=== PATIENT | male | born 1960 | race Hispanic/Latino ===

== ENCOUNTER 2020-11-14 08:12 | Day surgery (SDC) | payer OTHER ==
[2020-11-13 11:20] VITALS: BMI 38.0
[2020-11-14] MEDS ORDERED: Levofloxacin 500 mg/D5W 100 ml Premix Bag ONE (09:58)
[2020-11-14] MEDS ORDERED: Ondansetron PF 4 MG/2 ML Vial ONE ×2 (09:58→10:22)
[2020-11-14] MEDS ORDERED: Scopolamine 1.5 mg/72 hour Patch ONE (09:58)
[2020-11-14] MEDS ORDERED: Iothalamate Meglumine 60% 30 ML VIAL FS ONE (10:01)
[2020-11-14] MEDS ORDERED: Fentanyl 100 MCG/2 ML VIAL ONE (10:07)
[2020-11-14] MEDS ORDERED: PHENYLEPHRINE-NS 100 MCG/ML 10 ML SYRINGE ONE (10:22)
[2020-11-14] MEDS ORDERED: Lidocaine 1% PF 5 ML VIAL ONE (10:22)
[2020-11-14] MEDS ORDERED: PROPOFOL 200 MG/20 ML VIAL ONE (10:22)
[2020-11-14] MEDS ORDERED: Dexamethasone 20 MG/5 ML VIAL ONE (10:22)
[2020-11-14] MEDS ORDERED: ePHEDrine 50 MG/ML VIAL ONE (10:22)
[2020-11-14] MEDS ORDERED: Ketorolac Tromethamine 30 MG/ML VIAL ONE (11:36)
[2020-11-14] MEDS ORDERED: Oxybutynin 5 MG TAB ONE (11:36)
[2020-11-14] MEDS ORDERED: Phenazopyridine HCl 100 MG TAB ONE (11:36)
== END 2020-11-14 12:50 | disposition home or self-care (01) ==
LOC: SDC 08:12
PROVIDERS: ATTEND Urology
PROC: 0TC48ZZ Extirpation of Matter from Left Kidney Pelvis, Via Natural or Artificial Opening Endoscopic (ICD-10-PCS; principal; 2020-11-14)
PROC: 0T778DZ Dilation of Left Ureter with Intraluminal Device, Via Natural or Artificial Opening Endoscopic (ICD-10-PCS; principal; 2020-11-14)
DX: N20.0 Calculus of kidney (principal); N40.1 Benign prostatic hyperplasia with lower urinary tract symptoms; I10 Essential (primary) hypertension; E11.9 Type 2 diabetes mellitus without complications; Z79.84 Long term (current) use of oral hypoglycemic drugs; Z79.899 Other long term (current) drug therapy
CPT/HCPCS: 74420; 82365; 88300; C2617; J1100; J1885; J1956; J2405; J2704; J3010; J3490

== ENCOUNTER 2021-01-15 16:11 | Outpatient (CLI) | payer OTHER | END 2021-01-15 16:12 | disposition home or self-care (01) | LOC: BICULT 16:11 | PROVIDERS: ATTEND Urology | DX: N20.1 Calculus of ureter (principal) | CPT/HCPCS: 76770 ==

== ENCOUNTER 2021-03-26 13:15 | Inpatient (IN) | payer OTHER ==
[2021-03-30 10:12] VITALS: BMI 36.0
[2021-03-31] MEDS ORDERED: HYDROmorphone 2 MG/ML VIAL ONE (06:00)
[2021-03-31] MEDS ORDERED: Fentanyl 100 MCG/2 ML VIAL ONE ×2 (06:00→06:41)
[2021-03-31] MEDS ORDERED: Sodium Chloride 0.9% 10 ML ONE (06:01)
[2021-03-31] MEDS ORDERED: Sodium Chloride 0.9% 100 ML ONE (06:06)
[2021-03-31] MEDS ORDERED: ceFAZolin 2 GM/DEX 5% 100 ML BAG ONE (06:06)
[2021-03-31] MEDS ORDERED: Tranexamic Acid 1,000 MG/10 ML VIAL ONE (06:06)
[2021-03-31] MEDS ORDERED: Midazolam HCl 2 mg/2 ml Vial ONE (06:41)
[2021-03-31] MEDS ORDERED: Scopolamine 1.5 mg/72 hour Patch ONE (06:44)
[2021-03-31] MEDS ORDERED: Ondansetron PF 4 MG/2 ML Vial IVP PRN ×2 (06:53→07:15)
[2021-03-31] MEDS ORDERED: diphenhydrAMINE 25 MG CAP PO PRN (06:53)
[2021-03-31] MEDS ORDERED: Zolpidem Tartrate 5 MG TAB PO PRN ×2 (06:53→07:15)
[2021-03-31] MEDS ORDERED: Fentanyl 100 MCG/2 ML VIAL SLOW IVP PRN ×2 (06:53)
[2021-03-31] MEDS ORDERED: Acetaminophen 325 MG TAB PO PRN (06:53)
[2021-03-31] MEDS ORDERED: HYDROcodone/Acetaminophen 10/325 mg Tablet PO PRN ×4 (06:53→07:15)
[2021-03-31] MEDS ORDERED: Promethazine HCl 25 MG/ML VIAL IM PRN ×3 (06:53→08:52)
[2021-03-31] MEDS ORDERED: Vancomycin HCl 1.5 GM in Sodium Chloride 0.9% 250 ML 300 ML IVPB SCH (07:00)
[2021-03-31] MEDS ORDERED: Vancomycin 1.5 GRAM/300 ML BAG 1.5 GM in Premix Bag 1 BAG IVPB SCH (07:00)
[2021-03-31] MEDS ORDERED: Non-Formulary Item 1 EACH (Cholecalciferol (Vitamin D3) [Vitamin D3] 50,000 UNIT Capsule) PO SCH (07:00)
[2021-03-31] MEDS ORDERED: Fentanyl 100 MCG/2 ML VIAL IV PRN (07:06)
[2021-03-31] MEDS ORDERED: traMADol HCl 50 MG TAB PO PRN ×2 (07:15)
[2021-03-31] MEDS ORDERED: Ropivacaine 0.2% 550 ML 550 ML NERVE BLCK SCH (07:15)
[2021-03-31] MEDS ORDERED: Lidocaine 1% PF 5 ML VIAL ONE (07:18)
[2021-03-31] MEDS ORDERED: Ondansetron PF 4 MG/2 ML Vial ONE (07:18)
[2021-03-31] MEDS ORDERED: Dexamethasone 20 MG/5 ML VIAL ONE (07:18)
[2021-03-31] MEDS ORDERED: Phenylephrine 10 MG/ML VIAL ONE (07:18)
[2021-03-31] MEDS ORDERED: Bupivacaine HCl 0.5%/Epinephrine 1:200,000/PF 30 ml Vial ONE (07:18)
[2021-03-31] MEDS ORDERED: PROPOFOL 200 MG/20 ML VIAL ONE (07:18)
[2021-03-31] MEDS ORDERED: Bupivacaine PF 0.5% 30 ML VIAL ONE (08:09)
[2021-03-31] MEDS ORDERED: HYDROmorphone 2 MG/ML VIAL SLOW IVP PRN (08:52)
[2021-03-31] MEDS ORDERED: Promethazine HCl 25 MG/ML VIAL IVPB PRN (08:52)
[2021-03-31] MEDS ORDERED: Meperidine HCl/PF 25 MG/ML VIAL SLOW IVP PRN (08:52)
[2021-03-31] MEDS ORDERED: Ondansetron HCl/PF 4 MG/2 ML Vial IVP PRN (08:52)
[2021-03-31] MEDS ORDERED: Ergocalciferol 1.25 MG(50,000 UNITS) CAP PO SCH (09:00)
[2021-03-31] MEDS ORDERED: Non-Formulary Item 1 EACH (Pitavastatin Calcium 2 MG Tab) PO SCH (09:00)
[2021-03-31] MEDS ORDERED: Meperidine HCl/PF 25 MG/ML VIAL ONE (10:03)
[2021-03-31] MEDS ORDERED: hydrALAZINE 20 MG/ML VIAL ONE (10:49)
[2021-03-31] MEDS ORDERED: HumaLOG 300 UNITS/3 ML VIAL SC PRN ×2 (12:19)
[2021-03-31] MEDS ORDERED: Dextrose 5% in Water 1,000 ML IV PRN (12:19)
[2021-03-31] MEDS ORDERED: Dextrose 50% Abboject 50 ML SYRINGE SLOW IVP PRN (12:19)
[2021-03-31] MEDS: Sodium Chloride 0.9% 1,000 ML IV SCH ×2 (12:33→17:49)
[2021-03-31] MEDS: Aspirin 81 mg Enteric Coated Tablet PO SCH ×2 (12:33→21:17)
[2021-03-31] MEDS: metFORMIN 500 MG TAB PO SCH ×2 (12:33→13:17)
[2021-03-31] MEDS: Empagliflozin 10 MG TAB PO SCH (12:34)
[2021-03-31] MEDS: Losartan 25 MG TAB PO SCH (12:34)
[2021-03-31] MEDS: Multivitamin W/ Minerals 1 TAB PO SCH (12:34)
[2021-03-31] MEDS: Ferrous Gluconate 324 MG TAB PO SCH ×2 (12:34→21:17)
[2021-03-31] MEDS: Senokot S 8.6-50 MG TAB PO SCH ×2 (12:34→21:18)
[2021-03-31] MEDS: Ketorolac Tromethamine 30 MG/ML VIAL IVP SCH ×2 (13:17→17:41)
[2021-03-31] MEDS ORDERED: CEFAZOLIN 2 GM in Premix Bag 1 BAG IVPB SCH (14:00)
[2021-03-31] MEDS ORDERED: Ketorolac Tromethamine 30 MG/ML VIAL IM SCH (14:00)
[2021-03-31] MEDS: CEFAZOLIN 2 GM in Premix Bag 1 BAG IVPB SCH (17:37)
[2021-03-31] MEDS ORDERED: hydrALAZINE 20 MG/ML VIAL SLOW IVP PRN (19:01)
[2021-03-31] MEDS ORDERED: Polyethylene Glycol 3350 17 GM Packet PO PRN (19:01)
[2021-03-31] MEDS: Atorvastatin Calcium 10 MG TAB PO SCH (21:17)
[2021-03-31] MEDS: Tamsulosin HCl 0.4 MG CAP PO SCH (21:18)
[2021-04-01] MEDS: Ketorolac Tromethamine 30 MG/ML VIAL IVP SCH ×5 (00:59→22:47)
[2021-04-01] MEDS: CEFAZOLIN 2 GM in Premix Bag 1 BAG IVPB SCH (01:00)
[2021-04-01] MEDS: Sodium Chloride 0.9% 1,000 ML IV SCH ×3 (01:29→22:47)
[2021-04-01 05:33] LABS: Hemoglobin 12.6 g/dL (14.0-18.0); Mean Corpuscular HGB CONC 32.8 g/dL (32.0-36.0); Mean Corpuscular Hemoglobin 28.4 pg (27.0-31.0); Mean Corpuscular Volume 86.5 fL (78.0-98.0); Mean Platelet Volume 7.8 fL (7.4-10.4); Platelet Count 132 thou/uL (130-400); RBC Distribution Width 12.6 % (11.5-14.5); Red Blood Cell (RBC) Count 4.44 mill/uL (4.70-6.10); White Blood Cell (WBC) Count 9.5 thou/uL (4.8-10.8)
[2021-04-01] MEDS: metFORMIN 500 MG TAB PO SCH ×2 (08:29→17:11)
[2021-04-01] MEDS: Multivitamin W/ Minerals 1 TAB PO SCH (08:29)
[2021-04-01] MEDS: Ferrous Gluconate 324 MG TAB PO SCH ×2 (08:29→20:24)
[2021-04-01] MEDS: Aspirin 81 mg Enteric Coated Tablet PO SCH ×2 (08:29→20:24)
[2021-04-01] MEDS: Losartan 25 MG TAB PO SCH (08:29)
[2021-04-01] MEDS: Senokot S 8.6-50 MG TAB PO SCH ×2 (08:29→20:24)
[2021-04-01] MEDS: Empagliflozin 10 MG TAB PO SCH (08:30)
[2021-04-01] MEDS ORDERED: Ropivacaine 0.5% HCl/PF (150 MG/30 ML VIAL) ONE (08:53)
[2021-04-01] MEDS ORDERED: Lantus 1000 UNITS/10 ML VIAL SC SCH (09:00)
[2021-04-01] MEDS: Tamsulosin HCl 0.4 MG CAP PO SCH (20:24)
[2021-04-01] MEDS: Atorvastatin Calcium 10 MG TAB PO SCH (20:24)
[2021-04-01] MEDS ORDERED: Ketorolac Tromethamine 30 MG/ML VIAL ONE (22:43)
[2021-04-02] MEDS: Ketorolac Tromethamine 30 MG/ML VIAL IVP SCH (05:17)
[2021-04-02 06:09] VITALS: TEMP 97.9
[2021-04-02] MEDS: Aspirin 81 mg Enteric Coated Tablet PO SCH (08:03)
[2021-04-02] MEDS: Empagliflozin 10 MG TAB PO SCH (08:04)
[2021-04-02] MEDS: Losartan 25 MG TAB PO SCH (08:04)
[2021-04-02] MEDS: metFORMIN 500 MG TAB PO SCH (08:04)
[2021-04-02 08:08] VITALS: BP 160/95
[2021-04-02] MEDS: Multivitamin W/ Minerals 1 TAB PO SCH (08:12)
[2021-04-02] MEDS: Ferrous Gluconate 324 MG TAB PO SCH ×2 (08:13→08:18)
== END 2021-04-02 10:50 | disposition home or self-care (01) | DRG 468 ==
LOC: SDC 03-31 05:28 → SURG A 03-31 05:28 → SURG B 03-31 11:41 → EDSTATUS 03-31 17:00
PROVIDERS: ADMIT Orthopaedic Surgery; ATTEND Nurse Practitioner Family
PROC: 0SRC0J9 Replacement of Right Knee Joint with Synthetic Substitute, Cemented, Open Approach (ICD-10-PCS; principal; 2021-03-31)
PROC: 0SPC0JZ Removal of Synthetic Substitute from Right Knee Joint, Open Approach (ICD-10-PCS; 2021-03-31)
PROC: 3E0T3BZ Introduction of Anesthetic Agent into Peripheral Nerves and Plexi, Percutaneous Approach (ICD-10-PCS; 2021-03-31)
PROC: 0SBC0ZX Excision of Right Knee Joint, Open Approach, Diagnostic (ICD-10-PCS; 2021-03-31)
DX: T84.012A Broken internal right knee prosthesis, initial encounter (principal); Z20.822 Contact with and (suspected) exposure to COVID-19; Y83.1 Surgical operation with implant of artificial internal device as the cause of abnormal reaction of the patient, or of later complication, without mention of misadventure at the time of the procedure; M75.41 Impingement syndrome of right shoulder; I10 Essential (primary) hypertension; E11.9 Type 2 diabetes mellitus without complications; E66.9 Obesity, unspecified; N40.0 Benign prostatic hyperplasia without lower urinary tract symptoms; E55.9 Vitamin D deficiency, unspecified; Z90.49 Acquired absence of other specified parts of digestive tract; Z83.3 Family history of diabetes mellitus; Z82.49 Family history of ischemic heart disease and other diseases of the circulatory system; Z80.0 Family history of malignant neoplasm of digestive organs; Z79.899 Other long term (current) drug therapy; Z79.84 Long term (current) use of oral hypoglycemic drugs; Z68.36 Body mass index [BMI] 36.0-36.9, adult
CPT/HCPCS: 36415; 36416; 85027; 88305; 88331; A4306; C1713; C1776; J0360; J0690; J1100; J1170; J1815; J1885; J2175; J2250; J2370; J2405; J2704; J2795; J3010; J3490; S0020

== ENCOUNTER 2021-03-26 16:57 | Outpatient (CLI) | payer OTHER ==
[2021-03-26 18:52] LABS: #Eosinphils 0.4 10x3/uL (0.0-0.5); #Monocytes 0.5 10x3/uL (0.0-1.1); #Neutrophils 3.3 10x3/uL (1.5-8.4); %Basophils 0.7 % (0.0-2.0); %Eosinophils 6.1 % (0.0-6.0); %Lymphocytes 29.6 % (18.0-47.0); %Monocytes 8.8 % (0.0-10.0); %Neutrophils 54.5 % (40.0-75.0); Hemoglobin 14.6 g/dL (13.5-17.5); Mean Corpuscular HGB CONC 32.7 g/dL (32.0-36.0); Mean Corpuscular Hemoglobin 27.6 pg (27.0-33.0); Mean Corpuscular Volume 84.3 fl (81.2-95.1); Mean Platelet Volume 11.5 fl (7.4-10.4); Platelet Count 180 10x3/uL (150-450); RBC Distribution Width 13.5 % (11.5-14.5); Red Blood Cell (RBC) Count 5.29 10x6/uL (4.32-5.72)
[2021-03-26 18:53] LABS: INR-International Normal Ratio 0.9
[2021-03-26 18:56] LABS: Anion Gap 12 mmol/L (10-20); BUN (Urea Nitrogen) 20 mg/dL (8.4-25.7); Calc. Creatinine Clearance 0 mL/min (70-130); Calcium 9.4 mg/dL (7.8-10.44); Carbon Dioxide 26 mmol/L (23-31); Chloride 107 mmol/L (98-107); Glucose 246 mg/dL (80-115); Potassium 3.9 mmol/L (3.5-5.1); Sodium 141 mmol/L (136-145)
[2021-03-27 11:23] LABS: SARS-CoV-2 PCR by NAA Not Detected (NotDetected)
== END 2021-03-26 16:58 | disposition home or self-care (01) ==
LOC: LABBT 16:57
PROVIDERS: ATTEND Orthopaedic Surgery
DX: Z01.818 Encounter for other preprocedural examination (principal); Z20.822 Contact with and (suspected) exposure to COVID-19
CPT/HCPCS: 80048; 85025; 85610; 87081; 93005; 93010; U0003; U0005